=== PATIENT | male | born 1930 | race Caucasian/White ===

== ENCOUNTER 2019-05-29 20:25 | Emergency (ER) | payer MEDICARE, OTHER ==
[~2019-05-29] VITALS: Ht 175.3 cm; Wt 74.8 kg
[2019-05-29] MEDS ORDERED: LOTENSIN20 MG PO (20:41)
== END 2019-05-29 22:00 | disposition home or self-care (01) ==
LOC: ED 20:25
DX: M79.81 Nontraumatic hematoma of soft tissue (principal); I10 Essential (primary) hypertension; Z88.1 Allergy status to other antibiotic agents
CPT/HCPCS: 80053; 85025; 85610; 85730; 99283

== ENCOUNTER 2019-06-04 12:26 | Emergency (ER) | payer MEDICARE, OTHER ==
[~2019-06-04] VITALS: Ht 175.3 cm; Wt 74.8 kg
[~2019-06-04 12:26] MED LIST: LOTENSIN20 MG PO
--- OUTSIDE RECORDS SUMMARY | 2019-06-04 12:30 | XMS ---
PreManage Notification: DES JOHN Security Credit Analysis Manager Events No recent Security Events currently on file CRITERIA MET - [facility] - 2 Visits in 30 Days CARE PROVIDERS Isaiah Nunez MD Primary Care Current PHONE: Unknown orstorm Yung or Professor Of Art History Current PHONE: Unknown Amber Internal Other [facility] PHONE: Unknown Isaiah Nunez Primary Care Current PHONE: Unknown Rosy has no Care Guidelines for this patient. Tad VISIT COUNT (12 MO.) 2 [facility] TOTAL 2 NOTE: Visits indicate total known visits. ED/UCC VISIT TRACKING (12 MO.) 06/04/2019 12:27 [facility] [place] TYPE: Emergency COMPLAINT: - RIGHT ARM PAIN 05/29/2019 20:[address] [facility] [place] TYPE: Emergency COMPLAINT: - ARM SWELLING DIAGNOSES: - Nontraumatic hematoma of soft tissue - Allergy status to other antibiotic agents status - Essential (primary) hypertension - Localized swelling, mass and lump, right upper limb INPATIENT VISIT TRACKING (12 MO.) No inpatient visits to display in this time frame [id number]
== END 2019-06-04 15:13 | disposition home or self-care (01) ==
LOC: ED 12:26
DX: S50.11XA Contusion of right forearm, initial encounter (principal); W22.8XXA Striking against or struck by other objects, initial encounter; I10 Essential (primary) hypertension; Z87.891 Personal history of nicotine dependence; Z88.1 Allergy status to other antibiotic agents; Z79.899 Other long term (current) drug therapy
CPT/HCPCS: 93971; 99283-25

== ENCOUNTER 2019-06-09 04:34 | Emergency (ER) | payer MEDICARE, OTHER ==
[~2019-06-09] VITALS: Ht 175.3 cm; Wt 74.8 kg
--- OUTSIDE RECORDS SUMMARY | 2019-06-09 04:38 | XMS ---
PreManage Notification: DES JOHN Security Continuity Reader Events No recent Security Events currently on file CRITERIA MET - [facility] - Has Care Guidelines - [facility] - 2 Visits in 30 Days CARE PROVIDERS Wes Sebastian Internal Medicine: Pulmonary Disease 06/05/2019-Current PHONE: Unknown Isaiah Nunez MD Primary Care Current PHONE: Unknown janneth Case or Seating Upholsterer Current PHONE: Unknown Amber Armenta Other [facility] PHONE: Unknown Isaiah Nunez Primary Care Current PHONE: Unknown Rosy has no Care Guidelines for this patient. Care History Medical/Surgical 06/05/2019 [facility] - Patient is currently established with [facility]. If patient is seen in the ED during business hours. Please contact CHWs at [facility]. Care Recommendation: This patient has had 5 or more Emergency Department visits in the last 12 months.\T\nbsp; Patient requires education on the scope and purpose of the ED as an acute care provider not a Primary Care Provider and should not be utilized for chronic conditions.\T\nbsp; These are guidelines and the provider should exercise clinical judgment when providing care. E.D. VISIT COUNT (12 MO.) 3 [facility]. TOTAL 3 NOTE: Visits indicate total known visits. ED/UCC VISIT TRACKING (12 MO.) 06/09/2019 04:35 [facility] [place] TYPE: Emergency COMPLAINT: - RIGHT ARM SWELLING 06/04/2019 12:27 [facility] [place] TYPE: Emergency COMPLAINT: - RIGHT ARM PAIN DIAGNOSES: - Allergy status to other antibiotic agents status - Other snf (current) drug therapy - Pain in right forearm - Contusion of right forearm, initial encounter - Personal history of nicotine dependence - Striking against or struck by other objects, initial encounter - Essential (primary) hypertension 05/29/2019 20:25 [facility] [place] TYPE: Emergency COMPLAINT: - ARM SWELLING DIAGNOSES: - Nontraumatic hematoma of soft tissue - Allergy status to other antibiotic agents status - Essential (primary) hypertension - Localized swelling, mass and lump, right upper limb INPATIENT VISIT TRACKING (12 MO.) No inpatient visits to display in this time frame [id number]
== END 2019-06-09 05:07 | disposition home or self-care (01) ==
LOC: ED 04:34
DX: S50.11XA Contusion of right forearm, initial encounter (principal); X58.XXXA Exposure to other specified factors, initial encounter; Z88.1 Allergy status to other antibiotic agents; Z79.899 Other long term (current) drug therapy
CPT/HCPCS: 99283

== ENCOUNTER → 2019-06-22 | Emergency (ER) | payer MEDICARE, OTHER ==
[~2019-06-22] VITALS: Ht 175.3 cm; Wt 74.5 kg
--- OUTSIDE RECORDS SUMMARY | 2019-06-22 11:12 | XMS ---
PreManage Notification: DES JOHN Security Farmworker Cranberry Events No recent Security Events currently on file CRITERIA MET - [facility] - Has Care Guidelines - [facility] - 2 Visits in 30 Days CARE PROVIDERS Wes Sebastian Internal Medicine: Pulmonary Disease 06/05/2019-Current PHONE: Unknown Isaiah Nunez MD Primary Care Current PHONE: Unknown janneth Case or Control Chemist Current PHONE: Unknown Amber Armenta Other [facility] PHONE: Unknown Isaiah Nunez Primary Care Current PHONE: Unknown Rosy has no Care Guidelines for this patient. Care History Medical/Surgical 06/05/2019 [facility] - [facility] is [facility] established with [facility] [...] providing care. E.D. VISIT COUNT (12 MO.) 4 [facility]. TOTAL 4 NOTE: Visits indicate total known visits. ED/UCC VISIT TRACKING (12 MO.) 06/22/2019 11:10 [facility] [place] TYPE: Emergency COMPLAINT: - CONSTIPATION 06/09/2019 04:35 [facility] [place] TYPE: Emergency COMPLAINT: - RIGHT ARM SWELLING DIAGNOSES: - Other specified soft tissue disorders - Allergy status to other antibiotic agents status - Exposure to other specified factors, initial encounter - Other detention (current) drug therapy - Contusion of right forearm, initial encounter 06/04/2019 12:27 [facility] [place] TYPE: Emergency COMPLAINT: - RIGHT ARM PAIN DIAGNOSES: - Allergy status to other antibiotic agents status - Other intermodal dispatcher (current) drug therapy - Pain in right forearm - Contusion of right forearm, initial encounter - Personal history of nicotine dependence - Striking against or struck by other objects, init encntr - Essential (primary) hypertension 05/29/2019 20:[address] [facility] [place] TYPE: Emergency COMPLAINT: - ARM SWELLING DIAGNOSES: - Nontraumatic hematoma of soft tissue - Allergy status to other antibiotic agents status - Essential (primary) hypertension - Localized swelling, mass and lump, right upper limb INPATIENT VISIT TRACKING (12 MO.) No inpatient visits to display in this time frame [id number]
== END ==
LOC: ED 11:09
DX: K59.00 Constipation, unspecified (principal); I10 Essential (primary) hypertension; Z88.1 Allergy status to other antibiotic agents
CPT/HCPCS: 99283

== ENCOUNTER 2019-10-27 00:36 | Emergency (ER) | payer MEDICARE, OTHER ==
[~2019-10-27] VITALS: Ht 175.3 cm; Wt 74.4 kg
--- OUTSIDE RECORDS SUMMARY | 2019-10-27 00:38 | XMS ---
PreManage Notification: DES JOHN Security Hot Mill Operator Events No recent Security Events currently on file [place] [facility] [place] Wes Sebastian Internal Medicine: Pulmonary Disease 06/05/2019-Current PHONE: Unknown Isaiah Nunez MD Primary Care Current PHONE: Unknown janneth Case or Education Coordinator Current PHONE: Unknown Amber Armenta Other [facility] PHONE: Unknown Isaiah Nunez Primary Care Current PHONE: Unknown Rosy has no Care Guidelines for this patient. Care History Medical/Surgical 06/05/2019 [facility] - Patient is currently established with [facility]. If patient is seen in the ED during business hours. Please contact CHWs at [facility]. Care Recommendation: This patient has had 5 [...] providing care. E.D. VISIT COUNT (12 MO.) 5 [facility]. TOTAL 5 NOTE: Visits indicate total known visits. ED/UCC VISIT TRACKING (12 MO.) 10/27/2019 00:37 [facility] [place] TYPE: Emergency COMPLAINT: - FINGER INJURY 06/22/2019 11:10 [facility] [place] TYPE: Emergency COMPLAINT: - CONSTIPATION DIAGNOSES: - Essential (primary) hypertension - Constipation, unspecified - Allergy status to other antibiotic agents status 06/09/2019 04:35 [facility] [place] TYPE: Emergency COMPLAINT: - RIGHT ARM SWELLING DIAGNOSES: - Other specified soft tissue disorders - Allergy status to other antibiotic agents status - Exposure to other specified factors, initial encounter - Other intermission coordinator (current) drug therapy - Contusion of right forearm, initial encounter 06/04/2019 12:27 [facility] [place] TYPE: Emergency COMPLAINT: - RIGHT ARM PAIN DIAGNOSES: - Allergy status to other antibiotic agents status - Other intermission coordinator (current) drug therapy - Pain in right forearm - Contusion of right forearm, initial encounter - Personal history of nicotine dependence - Striking against or struck by other objects, init encntr - Essential (primary) hypertension 05/29/2019 20:25 [facility] [place] TYPE: Emergency COMPLAINT: - ARM SWELLING DIAGNOSES: - Nontraumatic hematoma of soft tissue - Allergy status to other antibiotic agents status - Essential (primary) hypertension - Localized swelling, mass and lump, right upper limb INPATIENT VISIT TRACKING (12 MO.) No inpatient visits to display in this time frame [email or web address]
== END 2019-10-27 01:26 | disposition home or self-care (01) ==
LOC: ED 00:36
DX: S62.656A Nondisplaced fracture of middle phalanx of right little finger, initial encounter for closed fracture (principal); W23.0XXA Caught, crushed, jammed, or pinched between moving objects, initial encounter; I10 Essential (primary) hypertension; Z88.1 Allergy status to other antibiotic agents; Z79.899 Other long term (current) drug therapy
CPT/HCPCS: 29130; 73140; 99283-25

== ENCOUNTER 2020-05-10 21:38 | Emergency (ER) | payer MEDICARE, OTHER ==
[~2020-05-10] VITALS: Ht 175.3 cm; Wt 74.4 kg
--- OUTSIDE RECORDS SUMMARY | 2020-05-10 21:40 | XMS ---
PreManage Notification: DES JOHN Security Crossing Tender Events No recent Security Events currently on file CRITERIA MET - [facility] - Has Care Guidelines CARE PROVIDERS JOYCE ZACARIAS Internal Medicine: Pulmonary Disease 06/05/2019-Current PHONE: Unknown Rosy has no Care Guidelines for this patient. Care History Medical/Surgical 10/27/2019 [facility] Patient fell and broke finger earlier on 10/26/2019.\T\nbsp; Lives alone, but has caregiver, Cassidy Will.\T\nbsp; Cassidy stated that ED should have an SANDRA and\T\nbsp;to contact her if ever patient presents in ED.\T\nbsp; No one contacted her. Patient does not want to see Dr. Sebastian anymore.\T\nbsp; I advised to get patient established with new PCP as soon as possible. 06/05/2019 [facility] - Patient is currently established with [facility]. If patient is seen in the ED during business hours. Please contact CHWs at [facility]. Care Recommendation: If this patient has had 5 or more Emergency Department visits in the last 12 months.\T\nbsp; Patient will require education on the scope and purpose of the ED as an acute care provider not a Primary Care Provider and should not be utilized for chronic conditions.\T\nbsp; These are guidelines and the provider should exercise clinical judgment when providing care. E.D. VISIT COUNT (12 MO.) [address] [facility] TOTAL 6 NOTE: Visits indicate total known visits. ED/UCC VISIT TRACKING (12 MO.) 05/10/2020 21:38 [facility] [place] TYPE: Emergency COMPLAINT: - CONSTIPATION 10/27/2019 00:37 [facility] [place] TYPE: Emergency COMPLAINT: - FINGER INJURY DIAGNOSES: - Allergy status to other antibiotic agents status - Essential (primary) hypertension - Nondisplaced fracture of medial phalanx of right little finge - Caught, crushed, jammed, or pinched between moving objects, i - Other terminal worker (current) drug therapy 06/22/2019 11:10 [facility] [place] TYPE: Emergency COMPLAINT: - CONSTIPATION DIAGNOSES: - Essential (primary) hypertension - Constipation, unspecified - Allergy status to other antibiotic agents status 06/09/2019 04:35 [facility] [place] TYPE: Emergency COMPLAINT: - RIGHT ARM SWELLING DIAGNOSES: - Other specified soft tissue disorders - Allergy status to other antibiotic agents status - Exposure to other specified factors, initial encounter - Other terminal worker (current) drug therapy - Contusion of right forearm, initial encounter 06/04/2019 12:27 [facility] [place] TYPE: Emergency COMPLAINT: - RIGHT ARM PAIN DIAGNOSES: - Allergy status to other antibiotic agents status - Other halfway (current) drug therapy - Pain in right forearm - Contusion of right forearm, initial encounter - Personal history of nicotine dependence - Striking against or struck by other objects, initial encounte - Essential (primary) hypertension 05/29/2019 20:25 [facility] [place] TYPE: Emergency COMPLAINT: - ARM SWELLING DIAGNOSES: - Nontraumatic hematoma of soft tissue - Allergy status to other antibiotic agents status - Essential (primary) hypertension - Localized swelling, mass and lump, right upper limb INPATIENT VISIT TRACKING (12 MO.) No inpatient visits to display in this time frame [id number]
== END 2020-05-10 23:17 | disposition home or self-care (01) ==
LOC: ED 21:38
DX: K59.00 Constipation, unspecified (principal); I10 Essential (primary) hypertension; Z88.1 Allergy status to other antibiotic agents; Z79.899 Other long term (current) drug therapy
CPT/HCPCS: 99283

== ENCOUNTER 2020-05-11 14:33 | Emergency (ER) | payer MEDICARE, OTHER ==
[~2020-05-11] VITALS: Ht 175.3 cm; Wt 74.4 kg
--- OUTSIDE RECORDS SUMMARY | 2020-05-11 14:36 | XMS ---
PreManage Notification: DES JOHN Security Animal Daycare Provider Events No recent Security Events currently on file CRITERIA MET - [facility] - Has Care Guidelines - [facility] - 2 Visits in 30 Days CARE PROVIDERS JOYCE ZACARIAS Internal Medicine: Pulmonary Disease 06/05/2019-Current PHONE: Unknown Rosy has no Care Guidelines for this patient. Care History Medical/Surgical 10/27/2019 [facility] Patient fell and broke finger earlier on 10/26/2019.\T\nbsp; Lives alone, but has caregiver, Cassidy Will.\T\nbsp; Cassidy stated that ED should have an SANDRA and\T\nbsp;to contact her if ever patient presents in ED.\T\nbsp; No one contacted her. Patient does not want to see Dr. Sebastian anymore.\T\nbsp; I advised to get patient established with new PCP as soon as possible. 06/05/2019 [facility] - Patient is currently established with [facility]. If patient is seen in the ED during business hours. Please contact CHWs at [facility]. Care Recommendation: If this patient has had 5 or more Emergency Department visits in the last 12 months.\T\nbsp; Patient will require education on the scope and purpose of the ED as an acute care provider not a Primary Care Provider and should not be utilized for chronic conditions.\T\nbsp; These are guidelines and the provider should exercise clinical judgment when providing care. Tad VISIT COUNT (12 MO.) 7 [facility] TOTAL 7 NOTE: Visits indicate total known visits. ED/UCC VISIT TRACKING (12 MO.) 05/11/2020 14:33 [facility] [place] TYPE: Emergency COMPLAINT: - CONSTIPATION 05/10/2020 21:38 [facility] [place] TYPE: Emergency COMPLAINT: - CONSTIPATION 10/27/2019 00:37 [facility] [place] TYPE: Emergency COMPLAINT: - FINGER INJURY DIAGNOSES: - Allergy status to other antibiotic agents status - Essential (primary) hypertension - Nondisplaced fracture of medial phalanx of right little finge - Caught, crushed, jammed, or pinched between moving objects, i - Other half-way (current) drug therapy 06/22/2019 11:10 [facility] [...] other specified factors, initial encounter - Other intermediate accountant (current) drug therapy - Contusion of right forearm, initial encounter 06/04/2019 12:27 [facility] [place] TYPE: Emergency COMPLAINT: - RIGHT ARM PAIN DIAGNOSES: - Allergy status to other antibiotic agents status - Other intermediate accountant (current) drug therapy - Pain in right [...] visits to display in this time frame [id number]
== END 2020-05-11 15:05 | disposition home or self-care (01) ==
LOC: ED 14:33
DX: K59.00 Constipation, unspecified (principal)